=== PATIENT | male | born 1995 | race Caucasian/White ===

== ENCOUNTER 2023-08-12 08:58 | Outpatient (REF) | payer OTHER, SELFPAY ==
[2023-08-12 21:33] LABS: Abs Immature Grans 0.01 10^3/uL (0.0-0.06); Absolute Basophil Count 0.01 10^3/uL (0.0-0.2); Absolute Lymphocyte Count 1.87 10^3/uL (1.2-3.4); Absolute Monocyte Count 0.31 10^3/uL (0.1-0.8); Absolute Neutrophil Count 3.49 10^3/uL (1.2-6.7); Basophils % 0.2; ESR 4 mm/hr (0-15); Eosinophils % 1.7; HGB 13.7 g/dL (13.5-17.5); Immature Grans % 0.2; Lymphocytes % 32.3; MCH 27.2 pg (27.0-33.0); MCHC 34.3 % (32.0-36.0); MCV 79 fL (80-95); Monocytes % 5.4; Neutrophils % 60.2; Platelet Count 221 10^3/uL (130-400); RBC 5.04 10^6/uL (4.36-5.78); RDW 12.6 % (11.8-14.1); RDW-SD 35.7 fL; WBC 5.79 10^3/uL (4.4-10.8)
[2023-08-12 21:52] LABS: ALT 26 U/L (16-63); AST 16 U/L (15-37); Albumin 4.3 g/dL (3.4-5.0); Alkaline Phosphatase 62 U/L (46-116); Anion Gap 8.5 mmol/L (3-11); BUN 12 mg/dL (7-18); Bilirubin, Total 0.4 mg/dL (0.2-1.0); CO2 28.5 mmol/L (21.0-32.0); CREATININE 0.8 mg/dL (0.70-1.30); Calcium 9.2 mg/dL (8.5-10.1); Chloride 104 mmol/L (98-107); Glucose 86 mg/dL (74-106); Lipase 39 U/L (16-77); Potassium 3.8 mmol/L (3.5-5.1); Sodium 141 mmol/L (136-145); Total Protein 7.4 g/dL (6.4-8.2)
[2023-08-17 13:24] LABS: IgA 194 mg/dL (85-499); Interpretation (See Note); Tissue Transglutaminase IgA <4.0 CU (<20.0)
== END 2023-08-12 08:59 ==
LOC: NCHCN 08:58
PROVIDERS: PCP Internal Medicine; Visit Provider Family Medicine
DX: R10.9 Unspecified abdominal pain (principal)
CPT/HCPCS: 80053; 82784; 83516; 83690; 85652; 85025

== ENCOUNTER 2024-10-26 18:28 | Outpatient (REF) | payer BC, OTHER, SELFPAY ==
[2024-10-31 13:27] LABS: Helicobacter pylori Ag, Feces Negative (Negative)
== END 2024-10-26 18:29 | disposition home or self-care (01) ==
LOC: NCHCN 18:28
PROVIDERS: PCP Internal Medicine; Visit Provider Family Medicine
DX: R10.9 Unspecified abdominal pain (principal)
CPT/HCPCS: 87338